=== PATIENT | male | born 1965 | race Caucasian/White ===

== ENCOUNTER 2016-03-13 07:15 | Emergency (ER) | payer OTHER ==
[~2016-03-13] VITALS: Ht 180.3 cm; Wt 99.4 kg
[2016-03-13] MEDS ORDERED: PERCOCET 5/31 TABLET PO (08:21)
[2016-03-13 08:46] VITALS: BP 130/89
== END 2016-03-13 08:35 | disposition home or self-care (01) ==
LOC: EME 07:15
DX: M25.512 Pain in left shoulder (principal); G89.29 Other chronic pain
CPT/HCPCS: 99281; 99284

== ENCOUNTER 2016-03-22 09:40 | Emergency (ER) | payer OTHER ==
[~2016-03-22] VITALS: Ht 180.3 cm; Wt 99.9 kg
[~2016-03-22 09:40] MED LIST: PERCOCET 5/31 TABLET PO
[2016-03-22] MEDS ORDERED: MOTRIN800 MG PO (10:40)
[2016-03-22] MEDS ORDERED: MOBIC7.5 MG PO (10:40)
[2016-03-22 11:43] LABS: EOSINOPHIL COUNT 0.2 K/uL (0-0.3); HEMATOCRIT 40.7 % (38.0-50.0); IMMATURE GRANULOCYTE (%) 0.2 % (0.0-0.7); IMMATURE GRANULOCYTE COUNT 0.1 K/uL; LYMPHOCYTE COUNT 1.7 K/uL (1.0-2.8); MCH 30.9 PG (29.0-34.0); MCHC 33.9 G/DL (30.0-36.0); MCV 91.1 FL (86-99); MEAN PLAT.VOLUME 9.6 uM^3 (9.0-12.4); MONOCYTE (%) 8.5 % (3-12); MONOCYTE COUNT 0.6 K/uL (0-0.8); NEUTROPHIL (%) 61.9 % (45-76); NEUTROPHIL COUNT 4.1 K/uL (1.8-6.4); PLATELET COUNT 241 K/uL (156-360); RBC DIS.WIDTH-CV 13.5 % (11.8-14.6); RBC DIS.WIDTH-SD 44.1 % (39-53); RED BLOOD COUNT 4.47 M/uL (4.00-5.50); WHITE BLOOD COUNT 6.6 K/uL (4.1-10.2)
[2016-03-22 11:56] LABS: CHLORIDE 106 mEq/L (99-109); POTASSIUM 4.1 mEq/L (3.7-5.4); SODIUM 139 mEq/L (136-147)
[2016-03-22 11:58] LABS: GLUCOSE 90 mg/dL (70-99)
[2016-03-22 11:59] LABS: ANION GAP 9 MEQ/L (2-14)
[2016-03-22 12:00] LABS: TOTAL BILIRUBIN 0.7 mg/dL (0.0-1.0)
[2016-03-22 12:02] LABS: ALKALINE PHOSPHATASE 85 IU/L (3-129); GFR ESTIMATE (CALCULATED) > 59 mL/min/
[2016-03-22 12:03] LABS: UREA NITROGEN (BUN) 13 mg/dL (9-23)
[2016-03-22 12:22] VITALS: BP 103/81
== END 2016-03-22 12:28 | disposition home or self-care (01) ==
LOC: EME 09:40
PROVIDERS: Physician Assistant
DX: R10.31 Right lower quadrant pain (principal); F17.200 Nicotine dependence, unspecified, uncomplicated
CPT/HCPCS: 80053; 85025; 99281; 99284